=== PATIENT | female | born 1960 | race Caucasian/White ===

== ENCOUNTER 2022-04-18 13:51 | Emergency (ER) | payer MEDICARE, OTHER ==
[~2022-04-18] VITALS: Ht 152.4 cm; Wt 73.0 kg
[2022-04-18 15:17] VITALS: BP 147/81
== END 2022-04-18 15:20 | disposition home or self-care (01) ==
LOC: ER 13:55
DX: M54.12 Radiculopathy, cervical region (principal); Z91.81 History of falling
CPT/HCPCS: 70450; 72125; 99283

== ENCOUNTER → 2025-06-10 | Outpatient (REF) | payer MEDICARE | LOC: MAMMO 10:01 | PROVIDERS: ATTEND Internal Medicine | DX: Z12.31 Encounter for screening mammogram for malignant neoplasm of breast (principal); Z13.820 Encounter for screening for osteoporosis | CPT/HCPCS: 77067; 77080 ==

== ENCOUNTER → 2025-07-02 | Outpatient (REF) | payer MEDICARE | LOC: MAMMO 12:30 | PROVIDERS: ATTEND Internal Medicine | DX: N64.89 Other specified disorders of breast (principal) ==